=== PATIENT | female | born 1970 | race African-American/Black ===

== ENCOUNTER 2017-06-05 00:55 | Emergency (ER) | payer OTHER ==
[~2017-06-05] VITALS: Ht 175.3 cm; Wt 84.0 kg
[2017-06-05] MEDS ORDERED: BENA20TA3 PO (01:22)
[2017-06-05] MEDS ORDERED: CLON0.1T14 PO (01:23)
[2017-06-05] MEDS ORDERED: HYDR25TA PO (01:23)
[2017-06-05] MEDS ORDERED: SODIUM CHLORIDE 0.9% 1,000 ML IV ONE (06:14)
[2017-06-05] MEDS ORDERED: METOCLOPRAMIDE HCL 10MG/2ML VIAL IV ONE (06:15)
[2017-06-05] MEDS ORDERED: ACETAMINOPHEN 325MG TABLET PO ONE (06:15)
[2017-06-05 06:53] LABS: BASOPHILS % 1.1 % (0.0-2.0); EOSINOPHILS % 2.6 % (0.0-5.0); HEMATOCRIT. 36.5 % (36.0-48.0); HEMOGLOBIN. 12.1 g/dL (12.0-16.0); LYMPHOCYTES % 26.6 % (20.0-50.0); MEAN CORPUSCULAR HEMOGLOBIN 28.2 pg (28.0-32.0); MEAN CORPUSCULAR VOLUME 85.1 fL (81.0-99.0); MEAN PLATELET VOLUME 7.5 fl (7.4-10.4); MONOCYTES % 13.2 % (2.0-8.0); NEUTROPHILS % 56.5 % (40.0-76.0); PLATELET 467 x1000/uL (130-400); RED BLOOD CELL COUNT 4.29 mill/uL (4.2-5.4); RED CELL DISTRIBUTION WIDTH 14.6 % (11.6-14.6)
[2017-06-05 06:55] LABS: PARTIAL THROMBOPLASTIN TIME 29.9 sec (23.4-31.0); PROTHROMBIN TIME 10.7 sec (9.4-11.6)
[2017-06-05 06:56] LABS: CARBON DIOXIDE 30 mEq/L (21-32); CHLORIDE 105 mEq/L (98-107); HCG SCREEN NEGATIVE
[2017-06-05 07:29] LABS: CLARITY URINE CLOUDY (CLEAR); COLOR URINE YELLOW (YELLOW); KETONES URINE TRACE (NEGATIVE); LEUKOCYTE ESTERASE URINE NEGATIVE (NEGATIVE); NITRITE URINE POSITIVE (NEGATIVE); OCCULT BLOOD URINE NEGATIVE (NEGATIVE); PH URINE 5.5 (4.5-8.0); PROTEIN URINE 1+ (NEGATIVE); SPECIFIC GRAVITY URINE 1.032 (1.005-1.030)
[2017-06-05 08:22] LABS: *BARBITURATES SCREEN URINE NEGATIVE (NEGATIVE); *BENZODIAZEPINES SCREEN URINE NEGATIVE (NEGATIVE); METHADONE URINE SCREEN NEGATIVE (NEGATIVE); OPIATES URINE SCREEN NEGATIVE (NEGATIVE)
[2017-06-05 08:24] LABS: *AMPHETAMINES SCREEN URINE PRESUMTIVE POSITIVE (NEGATIVE); *COCAINE SCREEN URINE PRESUMTIVE POSITIVE (NEGATIVE); CANNABINOID URINE SCREEN PRESUMTIVE POSITIVE (NEGATIVE); PHENCYCLIDINE URINE SCREEN PRESUMTIVE POSITIVE (NEGATIVE)
[2017-06-05] MEDS ORDERED: CEFTRIAXONE 1 G PREMIX 50 ML IV ONE (12:00)
[2017-06-05 13:29] VITALS: BP 136/85
== END 2017-06-05 14:20 | disposition home or self-care (01) ==
LOC: ER 00:55
DX: R07.9 Chest pain, unspecified (principal); N39.0 Urinary tract infection, site not specified; R51 Headache; R19.7 Diarrhea, unspecified; F19.10 Other psychoactive substance abuse, uncomplicated; J45.909 Unspecified asthma, uncomplicated; I10 Essential (primary) hypertension; F17.200 Nicotine dependence, unspecified, uncomplicated; Z93.3 Colostomy status; Z91.040 Latex allergy status
CPT/HCPCS: 36415; 71010; 80053; 80305; 81001; 84703; 85025; 85610; 85730; 87077; 87086; 87186; 93005; 96361; 96365; 96375; 99285; J0696; J2765; J7030; Z7610

== ENCOUNTER 2022-09-08 19:07 | Inpatient (IN) | payer MEDICAID, OTHER ==
[~2022-09-08] VITALS: Ht 170.2 cm; Wt 86.6 kg
[~2022-09-08 19:07] MED LIST: BENA-8 PO; CLON0.1T14 PO; HYDR25TA PO
[2022-09-08] MEDS ORDERED: LORAZEPAM 2MG/ML CPJ IV NR (20:53)
[2022-09-08 21:15] LABS: BASOPHILS % 0.5 % (0.0-2.0); EOSINOPHILS % 1.3 % (0.0-5.0); HEMATOCRIT. 36.3 % (36.0-48.0); HEMOGLOBIN. 11.7 g/dL (12.0-16.0); LYMPHOCYTES % 20.3 % (20.0-50.0); MEAN CORPUSCULAR VOLUME 86.3 fL (81.0-99.0); MEAN PLATELET VOLUME 7.9 fl (7.4-10.4); MONOCYTES % 10.4 % (2.0-8.0); NEUTROPHILS % 67.5 % (40.0-76.0); PLATELET 509 x1000/uL (130-400); RED CELL DISTRIBUTION WIDTH 14.8 % (11.6-14.6)
[2022-09-08 21:18] LABS: CHLORIDE 104 mEq/L (98-107)
[2022-09-08 21:22] LABS: HCG SCREEN NEGATIVE
[2022-09-08 21:25] LABS: ETHANOL BLOOD < 10 mg/dL
[2022-09-08 23:58] LABS: *AMPHETAMINES SCREEN URINE NEGATIVE (NEGATIVE); *BARBITURATES SCREEN URINE NEGATIVE (NEGATIVE); *BENZODIAZEPINES SCREEN URINE NEGATIVE (NEGATIVE); *COCAINE SCREEN URINE NEGATIVE (NEGATIVE); METHADONE URINE SCREEN NEGATIVE (NEGATIVE); OPIATES URINE SCREEN NEGATIVE (NEGATIVE)
[2022-09-09 00:13] LABS: CANNABINOID URINE SCREEN PRESUMTIVE POSITIVE (NEGATIVE); PHENCYCLIDINE URINE SCREEN PRESUMTIVE POSITIVE (NEGATIVE)
[2022-09-09] MEDS ORDERED: BACITRACIN ZINC OINT UDPKT TOP ONE (00:30)
[2022-09-09] MEDS ORDERED: ONDANSETRON HCL 4MG/2ML INJ IV PRN (09:45)
[2022-09-09] MEDS ORDERED: DIPHENHYDRAMINE 50MG/ML VIAL IV PRN (09:45)
[2022-09-09] MEDS ORDERED: IPRATROPIUM/ALBUTEROL 0.5-3(2.5)MG/3ML NEB HHN PRN (09:45)
[2022-09-09] MEDS ORDERED: ACETAMINOPHEN 325MG TABLET PO PRN (09:45)
[2022-09-09] MEDS: SODIUM CHLORIDE 0.9% 1,000 ML IV SCH ×2 (10:00→22:30)
[2022-09-09 12:00] VITALS: BP 178/85
[2022-09-09] MEDS: CLONIDINE 0.1MG TABLET PO PRN (13:30)
[2022-09-09 16:00] VITALS: BP 168/94
[2022-09-09 20:00] VITALS: BP 155/75
[2022-09-09] MEDS ORDERED: IPRATROPIUM BROMIDE (0.02%) 0.5MG/2.5ML NEB HHN PRN (23:00)
[2022-09-09] MEDS ORDERED: ALBUTEROL (0.083%) 2.5MG/3ML NEB HHN PRN (23:00)
[2022-09-10] VITALS: BP 133/73
[2022-09-10 04:00] VITALS: BP 159/82
[2022-09-10 07:44] LABS: BASOPHILS % 0.7 % (0.0-2.0); EOSINOPHILS % 2.7 % (0.0-5.0); HEMATOCRIT. 33.6 % (36.0-48.0); HEMOGLOBIN. 11.2 g/dL (12.0-16.0); LYMPHOCYTES % 20.6 % (20.0-50.0); MEAN CORPUSCULAR HEMOGLOBIN 28.6 pg (28.0-32.0); MEAN CORPUSCULAR VOLUME 86.1 fL (81.0-99.0); MEAN PLATELET VOLUME 7.7 fl (7.4-10.4); MONOCYTES % 10.9 % (2.0-8.0); NEUTROPHILS % 65.1 % (40.0-76.0); PLATELET 441 x1000/uL (130-400); RED BLOOD CELL COUNT 3.91 mill/uL (4.2-5.4); RED CELL DISTRIBUTION WIDTH 14.8 % (11.6-14.6)
[2022-09-10 08:00] VITALS: BP 164/85
[2022-09-10 08:37] LABS: CHLORIDE 108 mEq/L (98-107)
[2022-09-10] MEDS: SODIUM CHLORIDE 0.9% 1,000 ML IV SCH (11:05)
[2022-09-10 12:00] VITALS: BP 161/90
[2022-09-10 16:00] VITALS: BP 194/96
[2022-09-10 20:10] VITALS: BP 213/112
[2022-09-10] MEDS: CLONIDINE 0.1MG TABLET PO PRN (20:30)
== END 2022-09-11 05:05 | disposition home or self-care (01) | DRG 861 ==
LOC: ER 19:07 → 6EST 09-09 02:08 → EDBEDREQ 09-09 02:21 → EDBEDREQSVC 09-09 05:01
PROVIDERS: ADMIT Family Medicine Adult Medicine; ATTEND Family Medicine Adult Medicine
DX: R53.1 Weakness (principal); D72.829 Elevated white blood cell count, unspecified; I10 Essential (primary) hypertension; J45.909 Unspecified asthma, uncomplicated; F19.90 Other psychoactive substance use, unspecified, uncomplicated; F12.90 Cannabis use, unspecified, uncomplicated; F17.200 Nicotine dependence, unspecified, uncomplicated; Z91.040 Latex allergy status; Z79.899 Other long term (current) drug therapy
CPT/HCPCS: 36415; 80053; 80305; 80307; 80320; 80329; 84703; 85025; 93005; 93970; 99285; J2060; G0480